=== PATIENT | male | born 1995 | race Hispanic/Latino ===

== ENCOUNTER 2017-06-02 12:19 | Emergency (ER) | payer OTHER ==
[2017-06-02 12:29] VITALS: BP 146/84; PULSE 16; RESP 18; TEMP 98.1; O2SAT 98
[2017-06-02] MEDS ORDERED: Sodium Chloride 0.9% 1,000 ML IV STA (12:39)
--- NOTE | 2017-06-02 12:45 | ED PDOC ---
HPI: Abdomen Time Seen by Provider: 06/02/17 12:33 Chief Complaint (Nursing): GI Problem Chief Complaint (Provider): Vomiting History Per: Patient History/Exam Limitations: no limitations Onset/Duration Of Symptoms: Hrs Additional Complaint(s): Patient is a 21 y/o male with a past medical history of ADHD presenting to the emergency department for three episodes of vomiting with associated nausea after eating a chicken panini this morning. Reports that the first two episodes contained mostly partially digested food but the last bout contained some amounts of blood and no clots. Image of toilet bowl taken after the last episode showed that one quarter of the toilet bowl was full of blood. Of note, patient takes acne medication and is on Concerta. Denies abdominal pain, diarrhea, black or tarry stool, epigastric pain, weight loss, NSAID use, EtOH abuse, or other complaints. PCP: none provided. Past Medical History Reviewed: Historical Data, Nursing Documentation, Vital Signs Vital Signs: Last Vital Signs Temp 98.1 F 06/02/17 12:26 Pulse 16 L 06/02/17 12:26 Resp 18 06/02/17 12:26 BP 146/84 06/02/17 12:26 Pulse Ox 98 06/02/17 12:57 - Medical History Other PMH: ADHD - Surgical History Other surgeries: Foot surgery - Family History Family History: States: Unknown Family Hx - Social History Alcohol: None Drugs: Denies - Home Medications Home Medications: Ambulatory Orders Medication Instructions Recorded Ondansetron [Zofran] 4 mg PO Q6H PRN #10 tab 06/02/17 Pantoprazole Sodium [Protonix] 40 mg PO DAILY #14 ect 06/02/17 - Allergies Allergies/Adverse Reactions: Allergies Allergy/AdvReac Type Severity Reaction Status Date / Time clindamycin Allergy RASH Verified 06/02/17 12:25 Review of Systems ROS Statement: Except As Marked, All Systems Reviewed And Found Negative Gastrointestinal: Positive for: Nausea, Vomiting, Hematemesis. Negative for: Abdominal Pain, Diarrhea, Melena, Other (Epigastric pain) Physical Exam - Reviewed Nursing Documentation Reviewed: Yes Vital Signs Reviewed: Yes - Physical Exam Appears: Positive for: Well, Non-toxic, No Acute Distress Head Exam: Positive for: ATRAUMATIC, NORMAL INSPECTION, NORMOCEPHALIC Skin: Positive for: Normal Color, Warm, DRY Eye Exam: Positive for: EOMI, Normal appearance, PERRL Neck: Positive for: Normal, Painless ROM, Supple Cardiovascular/Chest: Positive for: Regular Rate, Rhythm. Negative for: Murmur Respiratory: Positive for: Normal Breath Sounds. Negative for: Accessory Muscle Use, Respiratory Distress Gastrointestinal/Abdominal: Positive for: Normal Exam, Soft. Negative for: Tenderness Extremity: Positive for: Normal ROM. Negative for: Pedal Edema Neurologic/Psych: Positive for: Alert, Oriented (x3) - Laboratory Results Result Diagrams: 06/02/17 12:50 06/02/17 12:50 - ECG O2 Sat by Pulse Oximetry: 98 (RA) Pulse Ox Interpretation: Normal Medical Decision Making Medical Decision Making: Time: 12:39 Initial impression: Isolated episodes of vomiting Initial plan: Labs Normal Saline 1 L V Zofran 4 mg IV Protonix 40 mg IVP GI referral Reevaluation Labs unremarkable except for mild elev transaminases Dr Hill GI eval patient in ED, said can go home on protonix given stable vitals and normal Hgb, no need for GI lavage now, return if any further vomiting /hematemesis, outpt eval of transaminases. Discussed all findings w patient, needs endo as outpt, hepatitis workup, diet modification, weight loss. Avoid NSAIDs /etoh. Scribe Attestation: Documented Robe Naranjo, acting as a scribe for Brian Gonzalez DO. Provider Scribe Attestation: All medical record entries made by the Scribe were at my direction and personally dictated by me. I have reviewed the chart and agree that the record accurately reflects my personal performance of the history, physical exam, medical decision making, and the department course for this patient. I have also personally directed, reviewed, and agree with the discharge instructions and disposition. Disposition - Clinical Impression Clinical Impression: Hematemesis, Abnormal LFTs - Patient ED Disposition Is Patient to be Admitted: No Counseled Patient/Family Regarding: Studies Performed, Diagnosis, Need For Followup, Rx Given - Disposition Referrals: Phil Hill MD [Staff Provider] - Disposition: Routine/Home Disposition Time: 14:30 Condition: STABLE Additional Instructions: Return to ER for any return of symptoms, dark or tarry stools, fever, abdominal pain or any concern. See Dr Hill GI doctor for further evaluation of symptoms and mildly abnormal LFTs. Avoid NSAIDs like advil, motrin or alleve. Avoid alcohol. Prescriptions: Ondansetron [Zofran] 4 mg PO Q6H PRN #10 tab PRN Reason: Nausea/Vomiting Pantoprazole Sodium [Protonix] 40 mg PO DAILY #14 ect Instructions: Acute Nausea and Vomiting (ED), Gastrointestinal Bleeding (ED) Forms: [employer] (Macedonian)
[2017-06-02 12:59] LABS: BASO # 0.1 K/uL (0.0-0.2); BASO % 1.2 % (0.0-2.0); EOS # 0.1 K/uL (0.0-0.7); HEMATOCRIT 44.7 % (35.0-51.0); LYMPH # 2.8 K/uL (1.0-4.3); MEAN CELL VOLUME 81.6 fl (80.0-94.0); MEAN CORPUSCULAR HEMOGLOBIN 27.7 pg (27.0-31.0); MEAN CORPUSCULAR HGB CONC 33.9 g/dL (33.0-37.0); MEAN PLATELET VOLUME 7.9 fl (7.2-11.7); MONO # 0.6 K/uL (0.0-0.8); MONO % 6.6 % (0.0-10.0); NEUT % 62.2 % (50.0-75.0); NRBC % 0.1 % (0.0-0.0); RED CELL DISTRIBUTION WIDTH 13.2 % (11.5-14.5); WHITE BLOOD COUNT 9.6 K/uL (4.8-10.8)
[2017-06-02 13:06] LABS: ALB/GLOB RATIO 1.6 (1.0-2.1); ALKALINE PHOSPHATASE 88 U/L (38-126); ALT/SGPT 149 U/L (21-72); AST/SGOT 64 U/L (17-59); BLOOD UREA NITROGEN 14 mg/dl (9-20); CALCIUM 9.9 mg/dL (8.4-10.2); CARBON DIOXIDE 24 mmol/L (22-30); CHLORIDE 103 mmol/L (98-107); GFR AFRICAN-AMERICAN > 60; GLUCOSE,RANDOM 97 mg/dL (75-110); LIPASE 51 U/L (23-300); POTASSIUM 3.9 MMOL/L (3.6-5.0); SODIUM 140 mmol/l (132-148); TOTAL PROTEIN 7.9 G/DL (6.3-8.2)
--- NOTE | 2017-06-02 14:54 | CP.PCM.CON ---
History of Present Illness - History of Present Illness History of Present Illness: 21 yo male came to ER after an episode of vomiting blood. He woke up feeling nauseated and had initially nonbloody vomiting. Vomited a second time and had blood mixed with emesis contents (patient has phone photo). No vomiting since and denies black stools . Last night right before bed had a slice of pizza. On Vyvance for ADHD and an antibiotic for a skin condition. Review of Systems - Constitutional Constitutional: absent: Fatigue - EENT Eyes: absent: Blurred Vision Nose/Mouth/Throat: absent: Epistaxis - Cardiovascular Cardiovascular: absent: Chest Pain - Respiratory Respiratory: absent: Dyspnea - Gastrointestinal Gastrointestinal: absent: Abdominal Pain - Genitourinary Genitourinary: absent: Change in Urinary Stream Past Patient History - Past Social History Alcohol: None Drugs: Denies - PSYCHIATRIC Hx Substance Use: No - SURGICAL HISTORY Hx Musculoskeletal Surgery: Yes (right foot/ankle) Meds Allergies/Adverse Reactions: Allergies Allergy/AdvReac Type Severity Reaction Status Date / Time clindamycin Allergy RASH Verified 06/02/17 12:25 Physical Exam - Constitutional Appears: Well - Head Exam Head Exam: ATRAUMATIC - Eye Exam Eye Exam: Normal appearance - ENT Exam ENT Exam: Mucous Membranes Moist - Neck Exam Neck exam: Positive for: Normal Inspection - Respiratory Exam Respiratory Exam: Clear to Auscultation Bilateral - Cardiovascular Exam Cardiovascular Exam: REGULAR RHYTHM, +S1, +S2 - GI/Abdominal Exam GI & Abdominal Exam: Normal Bowel Sounds, Soft. absent: Tenderness Results - Vital Signs Recent Vital Signs: Last Vital Signs Temp 98.1 F 06/02/17 12:26 Pulse 16 L 06/02/17 12:26 Resp 18 06/02/17 12:26 BP 146/84 06/02/17 12:26 Pulse Ox 98 06/02/17 12:57 - Labs Result Diagrams: 06/02/17 12:50 06/02/17 12:50 Labs: Laboratory Results - last 24 hr 06/02/17 06/02/17 12:50 12:50 WBC 9.6 RBC 5.48 Hgb 15.2 Hct 44.7 MCV 81.6 MCH 27.7 MCHC 33.9 RDW 13.2 Plt Count 251 MPV 7.9 Neut % (Auto) 62.2 Lymph % (Auto) 29.0 Granite % (Auto) 6.6 Eos % (Auto) 1.0 Baso % (Auto) 1.2 Neut # 6.0 Lymph # 2.8 Granite # 0.6 Eos # 0.1 Baso # 0.1 Sodium 140 Potassium 3.9 Chloride 103 Carbon Dioxide 24 Anion Gap 17 BUN 14 Creatinine 0.9 Est GFR ( Amer) > 60 Est GFR (Non-Af Amer) > 60 Random Glucose 97 Calcium 9.9 Total Bilirubin 1.0 AST 64 H ALT 149 H Alkaline Phosphatase 88 Total Protein 7.9 Albumin 4.8 Globulin 3.1 Albumin/Globulin Ratio 1.6 Lipase 51 Assessment & Plan (1) Hematemesis with nausea Assessment and Plan: Likely Livia Goodwin. No signs of active bleeding. Heart rate ,Hgb, and BUN all normal. GERD dietary guidelines discussed. May go home on PPI daily for one week. Contact me or the ER if bleeding seen when home Status: Acute (2) Liver enzyme elevation Assessment and Plan: Possibly due to NAFL. May be worked up as outpatient. Status: Acute
== END 2017-06-02 15:17 | disposition home or self-care (01) ==
LOC: H.ER 12:19
DX: R94.5 Abnormal results of liver function studies (principal); F90.9 Attention-deficit hyperactivity disorder, unspecified type; K21.9 Gastro-esophageal reflux disease without esophagitis
CPT/HCPCS: 80053; 83690; 85025; 96374; 99285; C9113; J2405; J7040